=== PATIENT | male | born 1970 | race Caucasian/White ===

== ENCOUNTER 2021-01-26 11:20 | Emergency (ER) | payer OTHER, SELFPAY ==
[2021-01-26 11:32] VITALS: BP 145/85; PULSE 98; RESP 18; TEMP 36.4; O2SAT 100; BMI 32.5
--- NOTE | 2021-01-26 11:40 | XR_ITS ---
PROCEDURE: XR FOOT LT MIN 3V CLINICAL INDICATION: pain COMPARISON: No exams were available for comparison FINDINGS: No acute fractures or dislocations. Bone density is normal. The tarsals, metatarsals and phalanges are unremarkable. No significant soft tissue abnormality. IMPRESSION: No acute findings. Dictated by: Rosalee Briceno 01/26/2021 12:09 Rosalee Briceno in [place] 01/26/2021 12:09
--- NOTE | 2021-01-26 12:06 | HMH.EDUTC ---
[facility] Disposition Clinical Impression: Left foot pain Disposition: Home, Self-Care Condition on Discharge: Good Instructions: DI for Gout, DI for Foot Pain Additional Instructions: Rest the extremity, Elevate the extremity as tolerated while you are resting. Take the medications as directed. Follow up with Dr. Ugalde (podiatry). I put in a referral but you need to call her office and schedule an appointment. Follow up with your regular doctor. GO TO THE ER FOR ANY WORSENING SYMPTOMS Prescriptions: methylPREDNISolone [Medrol] 4 mg PO DIRECTED 6 Days #21 [email or web address] Transmission Status: Received by [id number] Referrals: Provider,Vasiliy, [Primary Care Provider] - Patricia Ugalde DPM [Staff Physician] - Forms: Work/School Release Time of Disposition: 12:17 Medical Decision Making - Medical Records Medical records reviewed: No: I reviewed the patient's medical records. - Bandar Inquiry Pt receiving controlled substance: No Vital Signs: 01/26/21 11:32 01/26/21 12:55 Temperature 97.6 F 98.4 F Temperature Source Oral Pulse Rate 78 Pulse Rate [Left] 98 H Respiratory Rate 18 16 Blood Pressure 123/79 Blood Pressure [Right Arm] 145/85 H Blood Pressure Mean [Right Arm] 105 02 Sat by Pulse Oximetry 100 Oxygen Delivery Method Room Air Orders (Tests/Meds): ED MEDICATIONS Discontinued Medications Generic Name Dose Route Start Last Admin Trade Name Freq PRN Reason Stop Dose Admin Ketorolac Tromethamine 30 mg 01/26/21 12:11 01/26/21 12:41 Ketorolac 60mg/2ml Vial IM 01/26/21 12:12 30 mg ONCE ONE Administration Methylprednisolone Sodium Succinate 125 mg 01/26/21 12:11 01/26/21 12:41 Methylprednisolone Sod Succ 125mg Vial IM 01/26/21 12:12 125 mg ONCE ONE Administration - Radiology Data #1 Image(s): Foot/Toes Image Reviewed: Yes I reviewed the patient's radiology image, Yes I have reviewed radiologist's interpretation Preliminary Findings: Normal/NAD, No Fracture Seen PROCEDURE: XR FOOT LT MIN 3V CLINICAL INDICATION: pain COMPARISON: No exams were available for comparison FINDINGS: No acute fractures or dislocations. Bone density is normal. The tarsals, metatarsals and phalanges are unremarkable. No significant soft tissue abnormality. IMPRESSION: No acute findings. Dictated by: Rosalee Briceno 01/26/2021 12:09 in [facility] HPI - General Stated complaint: pain/swelling lt foot Time Seen by Provider: 01/26/21 12:06 Mode of Arrival: Ambulatory Source of Information: Patient Limitations: No Limitations Description of Symptoms (Recalled from Triage Doc. by RN): L foot pain and swelling. pt is unsure of injury. this has been ongoing since sat. HEENT Symptoms (Recalled from RN notes): No Resp Symptoms (Recalled from RN notes): No Skin Symptoms (Recalled from RN notes): No MS Symptoms (Recalled from RN notes): Yes (L foot pain/swelling) Functional Status (Recalled from RN notes): na - History of Present Illness Provider Complaint: He states that he has had left foot pain for the past 3 days. He denies any injury. He denies any history of gout, but he has had episodes similar issues as he is having now. - Related Data Previous Rx's Medication Instructions Recorded methylPREDNISolone [Medrol] 4 mg PO DIRECTED 6 Days #21 01/26/21 tab.[email or web address] Allergies Allergy/AdvReac Type Severity Reaction Status Date / Time No Known Allergies Allergy Verified 07/14/20 11:26 - Worker's Comp Is this a Worker's Comp case?: No [facility] History - Hepatitis A Screen Drug use history?: No High risk sexual behaviors?: No History of sexually transmitted infection?: No Currently employed?: No Childcare worker?: No Do you have indoor plumbing?: Yes Do you have electricity?: Yes Attestation statement:: This patient has been screened for Hepatitis A risk factors. I have reviewed the patient's past med
[2021-01-26 12:55] VITALS: BP 123/79; PULSE 78; RESP 16; TEMP 36.9
== END 2021-01-26 12:54 | disposition home or self-care (01) ==
PROVIDERS: Emergency Provider Nurse Practitioner Family
DX: M79.672 Pain in left foot (principal)
CPT/HCPCS: 73630; 96372; 99202; G0463

== ENCOUNTER 2022-02-23 13:30 | Emergency (ER) | payer OTHER, SELFPAY ==
[2022-02-23 13:31] VITALS: BP 118/67; PULSE 64; RESP 18; TEMP 36.5; O2SAT 94; BMI 30.5
--- NOTE | 2022-02-23 13:43 | CT_ITS ---
FINAL REPORT CLINICAL HISTORY: fall off ladder FINDINGS: Thin section axial CT images of the chest were obtained with contrast. 3D reformatted images were also obtained. This study was performed with techniques to keep radiation doses as low as reasonably achievable (ALARA). Individualized dose reduction techniques using automated exposure control or adjustment of mA and/or kV according to the patient's size were employed. There is no evidence of pulmonary embolism. There is no evidence of thoracic aortic aneurysm or dissection. There is no evidence of mediastinal or hilar mass or adenopathy. There is no evidence of pulmonary mass or nodule. No localized inflammatory process is seen within the lungs. There is a nondisplaced fracture of the left 8th anterior rib. There are possible nondisplaced fractures of the bilateral 7th anterior ribs. There is no pneumothorax. IMPRESSION: No evidence of pulmonary embolism. No thoracic aortic aneurysm or dissection. Nondisplaced left 8th anterior rib with possible nondisplaced bilateral anterior 7th ribs. No pneumothorax. Reviewed, Interpreted and Dictated by Alvin Ellis III, MD Transcribed by Guy John Authenticated and [facility]
--- NOTE | 2022-02-23 13:43 | CT_ITS ---
FINAL REPORT CLINICAL HISTORY: fall off ladder FINDINGS: Axial images of the head were obtained without contrast. Coronal reformatted images were also obtained.This study was performed with techniques to keep radiation doses as low as reasonably achievable (ALARA). Individualized dose reduction techniques using automated exposure control or adjustment of mA and/or kV according to the patient's size were employed. There is no evidence of intracranial hemorrhage or mass. The ventricular size is within normal limits. There is no evidence of shift of the midline structures. No abnormal extra axial fluid collection is identified. No skull abnormality is seen on the bone window images. There is total opacification of the right maxillary sinus. There is a retention cyst or polyp in the left maxillary sinus. IMPRESSION: No acute intracranial abnormality. Reviewed, Interpreted and Dictated by Alvin Ellis III, MD Transcribed by Guy John Authenticated and . [facility]
--- NOTE | 2022-02-23 13:43 | CT_ITS ---
FINAL REPORT CLINICAL HISTORY: fall off ladder FINDINGS: Post contrast axial imaging of the abdomen and pelvis was obtained and reviewed utilizing a CTA protocol. This study was performed with techniques to keep radiation doses as low as reasonably achievable (ALARA). Individualized dose reduction techniques using automated exposure control or adjustment of mA and/or kV according to the patient's size were employed. There is moderate vascular calcification. There is no evidence of aortic aneurysm or dissection. There is no evidence of aortic stenosis. The celiac axis, superior mesenteric artery and inferior mesenteric artery are patent without stenosis. There is mild stenosis at the origin of the right renal artery, less than 50%. There are accessory renal arteries bilaterally. The iliac arteries are unremarkable, without stenosis. The internal iliac arteries are patent. Review of the remaining abdomen and pelvis demonstrates mild stranding adjacent to the ascending colon of uncertain significance. Mild colitis cannot be excluded. There is no acute fracture. There are bilateral L5 pars defects. There are mildly enlarged bilateral inguinal lymph nodes that are nonspecific and may be reactive. There is no free air or free fluid. There are small umbilical hernias containing fat. IMPRESSION: No evidence of aortic dissection. Mild stranding adjacent to the ascending colon of uncertain significance. Mild colitis cannot be excluded. No acute fracture. No free air or free fluid. Reviewed, Interpreted and Dictated by Alvin Ellis III, MD Transcribed by Guy John Authenticated and . [facility]
--- NOTE | 2022-02-23 13:45 | HMH.EDGENADL ---
ED Disposition Clinical Impression: Fall, Rib fractures Disposition: Home, Self-Care Condition on Discharge: Good Additional Instructions: At this time it was felt you are safe to be discharged from the emergency department. If new or worsening symptoms please do not hesitate to return the emergency department. Please take your medication as prescribed. Prescriptions: methocarbamoL [Methocarbamol 500mg Tablet] 500 mg PO Q6H PRN #16 tab PRN Reason: Moderate Pain Transmission Status: Pending to [facility] Referrals: Provider,Referral, [Primary Care Provider] - - Critical Care Critical Care Time: No Attestation: On 02/23/22, the high probability of a clinically significant, sudden or life threatening deterioration of the following system(s) required my full and direct attention, intervention and personal management. The time I documented below is in addition to time spent performing reported procedures but includes the following listed in this critical care notation. Medical Decision Making - Bandar Inquiry Pt receiving controlled substance: No Vital Signs: 02/23/22 13:31 02/23/22 15:00 Temperature 97.7 F Temperature Source Oral Pulse Rate 69 Pulse Rate [Right Radial] 64 Respiratory Rate 18 16 Blood Pressure 133/78 Blood Pressure [Right Arm] 118/67 Blood Pressure Mean 97 Blood Pressure Mean [Right Arm] 84 Blood Pressure Source [Right Arm] Automatic Cuff Blood Pressure Position [Right Arm] Sitting 02 Sat by Pulse Oximetry 94 L 95 Oxygen Delivery Method Room Air - Lab Data Lab Results 02/23/22 14:04: WBC 14.5 H, RBC 3.47 L, Hgb 11.6 L, Hct 35.3 L, MCV 101.7 H, MCH 33.5 H, MCHC 32.9, RDW 15.0, Plt Count 273, MPV 10.2, Neut % (Auto) 82.4 H, Lymph % (Auto) 10.2, Stone % (Auto) 4.1, Eos % (Auto) 2.4, Baso % (Auto) 0.9, Neut # (Auto) 12.0 H, Lymph # (Auto) 1.5, Stone # (Auto) 0.6, Eos # (Auto) 0.3, Baso # (Auto) 0.1 02/23/22 14:04: Sodium 138, Potassium 4.4, Chloride 103, Carbon Dioxide 25, Anion Gap 14.4, BUN 16, Creatinine 1.10, Estimated Creat Clear 113, Estimated GFR 70, Est GFR ( Amer) 85, Glucose 110 H, Calcium 9.3, Total Bilirubin 0.8, AST 85 H, ALT 32, Alkaline Phosphatase 58, Troponin I < 0.01, Total Protein 8.4 H, Albumin 4.7, Globulin 3.7 H, Albumin/Globulin Ratio 1.3 Result diagrams: 02/23/22 14:04 02/23/22 14:04 Orders (Tests/Meds): ED MEDICATIONS Generic Name Dose Route Start Last Admin Trade Name Freq PRN Reason Stop Dose Admin Sodium Chloride 10 ml 02/23/22 14:08 Sodium Chloride 0.9% 10ml Flush Syringe IV 03/25/22 14:07 NEEDED PRN Maintain IV Site Discontinued Medications Generic Name Dose Route Start Last Admin Trade Name Freq PRN Reason Stop Dose Admin Acetaminophen 1,000 mg 02/23/22 13:44 02/23/22 13:56 Acetaminophen 500mg Tab PO 02/23/22 13:45 1,000 mg ONCE ONE Administration Iopamidol 94 ml 02/23/22 14:33 02/23/22 14:34 Iopamidol-370 (76%);100ml Bottle IV 02/23/22 14:34 94 ml ONCE ONE Administration Methocarbamol 500 mg 02/23/22 13:45 02/23/22 13:56 Methocarbamol 500mg Tablet PO 02/23/22 13:46 500 mg ONCE ONE Administration Sodium Chloride 50 ml 02/23/22 14:33 02/23/22 14:34 0.9 % Sodium Chloride 50 Ml Vial IV 02/23/22 14:34 50 ml ONCE ONE Administration Sodium Chloride 10 ml 02/23/22 14:33 02/23/22 14:34 Sodium Chloride 0.9% 10ml Syr (Rad Only) IV 02/23/22 14:34 10 ml ONCE ONE Administration Tetanus/Reduced Diphtheria/Acell Pertussis 0.5 ml 02/23/22 13:48 Tet/Diphth/Pert-Adult 0.5ml Syringe IM 02/23/22 13:49 .ONCE ONE ORDERS Category Date Time Status Troponin I Q3H Lab 02/23/22 17:00 Ordered Troponin I Q3H Lab 02/23/22 20:00 Ordered ECG Request by /Nse Stat Y 02/23/22 13:45 Ordered Medical Decision Narrative: In summary patient is a 52-year-old male with past medical history described below presents emergency department for e
--- NOTE | 2022-02-23 14:08 | ECG_ITS ---
APPROVED REPORT Exam: Resting ECG HR:62 bpm ECG Measurements Heart Rate 62 AXES [place] 198 P 42 QRSd 103 QRS -13 QT 423 T 121 QTc 428 Conclusion SINUS RHYTHM LOW QRS VOLTAGE IN PRECORDIAL LEADS [QRS DEFLECTION < 1.0 mV IN CHEST LEADS] POSSIBLE ANTERIOR MYOCARDIAL INFARCTION , PROBABLY OLD [30 ms Q WAVE IN V3/V4, OR R < 0.2 mV IN V4] BORDERLINE ECG UNCONFIRMED REPORT Electronically signed by : Josef Ross MD 02/23/2022 17:01:14
--- NOTE | 2022-02-23 14:12 | PC.NURSE ---
rad at BS to transport pt to CT
[2022-02-23 14:30] LABS: Alanine Aminotransferase 32 U/L (12-78); Albumin Level 4.7 g/dl (3.5-5.0); Albumin/Globulin Ratio 1.3 (1.1-1.8); Alkaline Phosphatase 58 U/L (38-126); Anion Gap 14.4 mEq/L (5-15); Aspartate Amino Transferase 85 U/L (17-59); Basophils # 0.1 K/mm3 (0-0.2); Basophils % 0.9 % (0.1-2.0); Bilirubin,Total 0.8 mg/dl (0.2-1.3); Blood Urea Nitrogen 16 mg/dl (9-20); Calcium 9.3 mg/dl (8.4-10.2); Carbon Dioxide 25 mmol/L (22.0-30.0); Chloride 103 mmol/L (98-107); Creatinine Clearance Estimated 113 mL/min (50-200); Eosinophils # 0.3 K/mm3 (0.0-0.4); Eosinophils % 2.4 % (0.1-12.0); Estimated Glomerular Filt Rate 70 ml/min (>60); GFR (African American) 85 ML/MIN (>60); Globulin 3.7 g/dL (1.3-3.2); Glucose 110 mg/dl (74-100); Hematocrit 35.3 % (42.0-52.0); Hemoglobin 11.6 g/dL (14.1-18.0); Lymphocytes # 1.5 K/mm3 (0.7-4.5); Lymphocytes % 10.2 % (10-50); Mean Corpuscular HGB Conc 32.9 g/dL (31.8-35.4); Mean Corpuscular Hemoglobin 33.5 pg (27.0-31.2); Mean Corpuscular Volume 101.7 fl (80-94); Mean Platelet Volume 10.2 fl (7.4-10.4); Monocytes # 0.6 K/mm3 (0.1-1.0); Monocytes % 4.1 % (1.7-9.3); Neutrophils % 82.4 % (37.0-80.0); Platelet Count 273 K/mm3 (142-424); Potassium 4.4 mmoL/L (3.5-5.1); Red Blood Count 3.47 M/mm3 (4.60-6.20); Sodium 138 mmol/L (136-145); Total Protein,Serum 8.4 g/dl (6.3-8.2); White Blood Count 14.5 K/mm3 (4.8-10.8)
[2022-02-23 14:52] LABS: Troponin I < 0.01 ng/ml (0.00-0.034)
[2022-02-23 15:00] VITALS: BP 133/78; PULSE 69; RESP 16; O2SAT 95
--- NOTE | 2022-02-23 15:48 | PC.NURSE ---
ER at discussing test results with pt pt also getting incentive spirometer teaching
[2022-02-23 16:23] VITALS: BP 112/74; PULSE 74; RESP 16; TEMP 36.6; O2SAT 98
== END 2022-02-23 16:24 | disposition home or self-care (01) ==
PROVIDERS: Emergency Provider Emergency Medicine
DX: S22.42XA Multiple fractures of ribs, left side, initial encounter for closed fracture (principal); W19.XXXA Unspecified fall, initial encounter; Z23 Encounter for immunization; Z79.899 Other long term (current) drug therapy; Z72.0 Tobacco use
CPT/HCPCS: 70450; 71275; 74174; 80053; 84484; 85025; 90471; 90715; 93005; 99285; Q9967

== ENCOUNTER 2024-11-15 14:44 | Emergency (ER) | payer OTHER, SELFPAY ==
[2024-11-15] VITALS (7 sets, daily range): BP systolic 131–166; BP diastolic 83–99; PULSE 64–87; RESP 16–19; TEMP 36.7–36.8; O2SAT 93–96; BMI 32.5
--- NOTE | 2024-11-15 14:45 | HMH.EDGENADL ---
Discharge Plan Disposition Patient Disposition: Home, Self-Care Condition: Good Prescriptions Prescriptions: New prednisone 50 mg tablet 50 mg PO DAILY 5 Days Qty: 5 0RF amoxicillin-pot clavulanate 875-125 mg tablet 1 tab PO BID Qty: 10 0RF No Action methylprednisolone 4 MG tablets,dose pack 4 mg PO DIRECTED 6 Days Qty: 21 0RF methocarbamol 500 MG tablet 500 mg PO Q6H PRN (Reason: Moderate Pain) Qty: 16 0RF Referrals Follow up/Referrals: Kory Ponce DO [Staff Physician] - See instructions (Left hand atraumatic swelling) Provider,Referral, [Primary Care Provider] - See instructions Activity Restrictions/Add. Instructions Additional Instructions/Restrictions: I have sent you in a steroid to help reduce the swelling. Recommend rest ice compression elevation. I have also referred you to an orthopedic surgeon for further evaluation. If you have any continued new or worsening signs or symptoms follow-up with your PCP or return to the ER as needed. Clinical Impressions Clinical Impression: Swelling of left hand Print Language Print Language: Chilean Discharge ED Provider: Jean Mercer General Adult HPI <KATERIN Chou - Last Filed: 11/15/24 19:55> General Chief complaint: Extremity Problem,Nontraumatic Stated complaint: left hand swollen, painful Time Seen by Provider: 11/15/24 14:45 History of Present Illness HPI narrative: Patient presents for evaluation of left hand swelling. Patient states that his left hand has been swelling since . He denies any trauma. He does drive a forklift all day. He reports difficulty with making a fist but has otherwise no limitations of range of motion. He has had no fever chills nausea vomiting numbness tingling loss of motor or sensory. He has essentially no pain. He is right-hand dominant. Please note that above description of symptoms, in this electronic medical record under categorization of recalled from ER triage doctor by RN are reflective of an initial nursing assessment, however, is not reflective of my full history and physical exam that was personally taken and clarified. Consequentially, this preceding description of symptoms, which may include the patient's categorized chief complaint in the EMR, do not reflect my personal clinical impression, and the ultimate description of history of present illness and patient stated complaints should be deferred to this section of the note. Unless stated otherwise or congruent with this section of the note, additional signs, symptoms, or incongruence should be interpreted as inaccurate with my clinical impression. Related Data Previous Rx's ?Medication ?Instructions ?Recorded methylprednisolone 4 mg tablets in 4 mg PO DIRECTED 6 days ##21 01/26/21 a dose pack methocarbamol 500 mg tablet 500 mg PO Q6H PRN Moderate Pain 02/23/22 #16 tabs amoxicillin 875 mg-potassium 1 tab PO BID #10 tabs 11/15/24 clavulanate 125 mg tablet prednisone 50 mg tablet 50 mg PO DAILY 5 days #5 tabs 11/15/24 Allergies Allergy/AdvReac Type Severity Reaction Status Date / Time No Known Allergies Allergy Verified 07/14/20 11:26 <Jean Mercer MD - Last Filed: 11/15/24 20:12> History of Present Illness HPI narrative: Please note that above description of symptoms, in this electronic medical record under categorization of recalled from ER triage doctor by RN are reflective of an initial nursing assessment, however, is not reflective of my full history and physical exam that was personally taken and clarified. Consequentially, this preceding description of symptoms, which may include the patient's categorized chief complaint in the EMR, do not reflect my personal clinical impression, and the ultimate description of history of present illness and patient stated complaints should be deferred to this section of the note. Unless stated otherwise or congruent with this section of the note, additional signs, symptoms, or incongruence should be interpreted as inaccurate with my clinical impression. [facility] <KATERIN Chou - Last Filed: 11/15/24 19:55> [facility] Disclaimer: The information contained in this section may have been updated after the patient was seen, as this information can be updated by other users. Social History Smoking Status: Current every day smoker tobacco type: cigarettes (1 ppd) alcohol intake: current alcohol intake frequency: holidays/special occasions only current occupational status: employed Travel in the last 8 weeks?: None Have you lived/traveled outside [place] in past 30 days?: No Contact w/someone who lives/traveled outside US past 30 days?: No Exposure to someone with infectious disease in past 14 days?: No Do you have a fever (greater than 100.4 F or 38 C)?: No Have you tested positive for COVID-19?: No Exposed to someone with COVID-19 in past 14 days?: No Do you have a sore throat?: No Do you have a cough?: No Do you have any weakness?: No Do you have any diarrhea?: No Are you experiencing any unusual bleeding?: No Do you have any muscle aches/pain?: Yes Do you have any abdominal pain?: No Are you experiencing loss of taste or smell?: No Other Medical History Have you received the Flu Vaccine for this season: Yes Have you received the Pneumonia Vaccine: No <KATERIN Chou - Last Filed: 11/15/24 19:55> ROS Obtained: Yes Systems reviewed as appropriate & no additional complaints except as documented Physical Exam <KATERIN Chou - Last Filed: 11/15/24 19:55> General General appearance: alert and in no apparent distress Respiratory Respiratory exam: Present normal lung sounds bilaterally Cardiovascular Cardiovascular exam: Present regular rate Abdominal Exam Abdominal exam: Absent soft Neurological Exam Neurological exam: Present alert and oriented X3 Medical Decision Making <KATERIN Chou - Last Filed: 11/15/24 19:55> Medical Records Screening: Per USPSTF and CDC recommendations, given the prevalence of disease in our region, it is our hospital?s policy to screen for HIV and viral Hepatitis for all patients aged 18 and over and those with ongoing risk factors. Vital Signs: 11/15/24 14:52 11/15/24 14:58 11/15/24 15:30 Temperature 98.2 F Temperature Source Oral Pulse Rate 87 68 Pulse Rate [Left Radial] 82 Respiratory Rate 19 Blood Pressure 144/98 H 162/83 H Blood Pressure [Right Arm] 144/98 H Blood Pressure Mean [Right Arm] 113 Blood Pressure Source [Right Arm] Automatic Cuff Blood Pressure Position [Right Arm] Supine 02 Sat by Pulse Oximetry 95 96 94 L Oxygen Delivery Method Room Air 11/15/24 16:01 11/15/24 16:30 11/15/24 17:00 Temperature Temperature Source Pulse Rate 69 64 69 Pulse Rate [Left Radial] Respiratory Rate Blood Pressure 166/99 H 142/85 H 131/83 Blood Pressure [Right Arm] Blood Pressure Mean [Right Arm] Blood Pressure Source [Right Arm] Blood Pressure Position [Right Arm] 02 Sat by Pulse Oximetry 93 L 94 L 94 L Oxygen Delivery Method Room Air 11/15/24 17:37 Temperature 98.0 F Temperature Source Pulse Rate 71 Pulse Rate [Left Radial] Respiratory Rate 16 Blood Pressure 134/90 Blood Pressure [Right Arm] Blood Pressure Mean [Right Arm] Blood Pressure Source [Right Arm] Blood Pressure Position [Right Arm] 02 Sat by Pulse Oximetry Oxygen Delivery Method Lab Data Lab results reviewed: Yes I reviewed the patient's lab results. Lab Results 11/15/24 15:03: WBC 8.7, RBC 3.47 L, Hgb 11.3 L, Hct 33.8 L, MCV 97.4 H, MCH 32.6 H, MCHC 33.4, RDW 14.4, Plt Count 238, MPV 11.1 H, Neut % (Auto) 61.8, Lymph % (Auto) 23.6, [place] % (Auto) 6.4, Eos % (Auto) 7.0, Baso % (Auto) 1.1, Neut # (Auto) 5.4, Lymph # (Auto) 2.1, [place] # (Auto) 0.6, Eos # (Auto) 0.6 H, Baso # (Auto) 0.1, ESR 122 H, PT 11.2, INR 1.00, D-Dimer 0.50, Sodium 136, Potassium 4.0, Chloride 101, Carbon Dioxide 30, Anion Gap 9.0, BUN 13, Creatinine 1.40 H, Estimated Creat Clear 93, Estimated GFR 53 L, Est GFR ( Amer) 64, Glucose 107 H, Uric Acid 6.1, Calcium 9.4, Total Bilirubin 1.1, AST 40, ALT 15, Alkaline Phosphatase 49, C-Reactive Protein 12.4 H, Total Protein 7.8, Albumin 4.7, Globulin 3.1, Albumin/Globulin Ratio 1.5, HCV Ab RACHEL w/Rflx PCR Qn Negative, HIV Ag/Ab Combo Qual Negative 11/15/24 15:03 11/15/24 15:03 Orders (Tests/Meds): ED MEDICATIONS Discontinued Medications Generic Name Dose Route Start Last Admin Trade Name Freq PRN Reason Stop Dose Admin Prednisone 40 mg 11/15/24 17:39 11/15/24 17:41 Prednisone 20mg Tab PO 11/15/24 17:40 40 mg ONCE ONE Administration ORDERS Category Date Time Status Forearm XR left 2 views [XR forearm LT 2V] Stat Exams 11/15/24 15:04 Completed Hand XR left minimum 3 views [XR hand LT min 3V] Stat Exams 11/15/24 15:04 Completed POCUS Point of Care (ER Only) Stat Exams 11/15/24 17:14 Taken CBC w/Auto Diff [Complete Blood Count Auto Diff] Stat Lab 11/15/24 15:03 Completed CMP [Comprehensive Metabolic Panel] Stat Lab 11/15/24 15:03 Completed CRP [C-Reactive Protein] Stat Lab 11/15/24 15:03 Completed D-Dimer Stat Lab 11/15/24 15:03 Completed ESR [Erythrocyte Sedimentation Rate] Stat Lab 11/15/24 15:03 Completed HIV Combo Stat Lab 11/15/24 15:03 Completed Hepatitis C Ab Qual. W/ RFX Stat Lab 11/15/24 15:03 Completed INR [Prothrombin Time INR] Stat Lab 11/15/24 15:03 Completed Uric Acid Stat Lab 11/15/24 15:03 Completed Medical Decision Narrative: In summary patient is a 54-year-old male who presents to the emergency department for evaluation of painless atraumatic swelling of his left hand. Patient is hemodynamically stable upon arrival, afebrile. Physical exam is remarkable for 2+ to 3+ slightly pitting edema of the left hand. There is no erythema there is no induration there is no fluctuance. Patient is neurovascularly intact distally. He has reduced range of motion due to the swelling but is nontender to palpation. He has good peripheral pulses and cap refill. There is palpable ulnar and radial pulses. Edema extends up to approximately mid forearm.. Differential diagnosis includes cellulitis versus DVT versus overuse syndrome versus arthritis etc. Initial workup will be conducted with hematologic labs plain film x-ray POCUS. Initial interventions Tylenol and ibuprofen for now. Initial workup reviewed by me shows that he has a white count of 8.7 hemoglobin hematocrit 11.3 and 33.8 respectively with an absolute neutrophil count of 5.4, INR of 1 D-dimers 0.5 creatinine is 1.4 GFR is 53 CRP is 12.4 sed rate is 122. My informed interpretation of his imaging shows soft tissue swelling without any bony abnormality and POCUS did not reveal any DVT or signs of subcutaneous cellulitis or abscess. Given this we have essentially ruled out any serious or life-threatening condition and while there remains diagnostic uncertainty patient is appropriate for discharge with instruction to continue Tylenol alternating with Motrin, he was given a prescription for short course of steroids, and I have referred him to orthopedics for further evaluation and care. Patient given strict return precautions. Patient verbalized understanding and agreement. <Jean Mercer MD - Last Filed: 11/15/24 20:12> Medical Records Medical records reviewed: Yes I reviewed the patient's medical records. Bandar Inquiry Pt receiving controlled substance: No Bandar was queried for this patient: No Vital Signs: 11/15/24 14:52 11/15/24 14:58 11/15/24 15:30 Temperature 98.2 F Temperature Source Oral Pulse Rate 87 68 Pulse Rate [Left Radial] 82 Respiratory Rate 19 Blood Pressure 144/98 H 162/83 H Blood Pressure [Right Arm] 144/98 H Blood Pressure Mean [Right Arm] 113 Blood Pressure Source [Right Arm] Automatic Cuff Blood Pressure Position [Right Arm] Supine 02 Sat by Pulse Oximetry 95 96 94 L Oxygen Delivery Method Room Air 11/15/24 16:01 11/15/24 16:30 11/15/24 17:00 Temperature Temperature Source Pulse Rate 69 64 69 Pulse Rate [Left Radial] Respiratory Rate Blood Pressure 166/99 H 142/85 H 131/83 Blood Pressure [Right Arm] Blood Pressure Mean [Right Arm] Blood Pressure Source [Right Arm] Blood Pressure Position [Right Arm] 02 Sat by Pulse Oximetry 93 L 94 L 94 L Oxygen Delivery Method Room Air 11/15/24 17:37 Temperature 98.0 F Temperature Source Pulse Rate 71 Pulse Rate [Left Radial] Respiratory Rate 16 Blood Pressure 134/90 Blood Pressure [Right Arm] Blood Pressure Mean [Right Arm] Blood Pressure Source [Right Arm] Blood Pressure Position [Right Arm] 02 Sat by Pulse Oximetry Oxygen Delivery Method Lab Data Lab Results 11/15/24 15:03: WBC 8.7, RBC 3.47 L, Hgb 11.3 L, Hct 33.8 L, MCV 97.4 H, MCH 32.6 H, MCHC 33.4, RDW 14.4, Plt Count 238, MPV 11.1 H, Neut % (Auto) 61.8, Lymph % (Auto) 23.6, [place] % (Auto) 6.4, Eos % (Auto) 7.0, Baso % (Auto) 1.1, Neut # (Auto) 5.4, Lymph # (Auto) 2.1, [place] # (Auto) 0.6, Eos # (Auto) 0.6 H, Baso # (Auto) 0.1, ESR 122 H, PT 11.2, INR 1.00, D-Dimer 0.50, Sodium 136, Potassium 4.0, Chloride 101, Carbon Dioxide 30, Anion Gap 9.0, BUN 13, Creatinine 1.40 H, Estimated Creat Clear 93, Estimated GFR 53 L, Est GFR ( Amer) 64, Glucose 107 H, Uric Acid 6.1, Calcium 9.4, Total Bilirubin 1.1, AST 40, ALT 15, Alkaline Phosphatase 49, C-Reactive Protein 12.4 H, Total Protein 7.8, Albumin 4.7, Globulin 3.1, Albumin/Globulin Ratio 1.5, HCV Ab RACHEL w/Rflx PCR Qn Negative, HIV Ag/Ab Combo Qual Negative Orders (Tests/Meds): ED MEDICATIONS Discontinued Medications Generic Name Dose Route Start Last Admin Trade Name Freq PRN Reason Stop Dose Admin Prednisone 40 mg 11/15/24 17:39 11/15/24 17:41 Prednisone 20mg Tab PO 11/15/24 17:40 40 mg ONCE ONE Administration ORDERS Category Date Time Status Forearm XR left 2 views [XR forearm LT 2V] Stat Exams 11/15/24 15:04 Completed Hand XR left minimum 3 views [XR hand LT min 3V] Stat Exams 11/15/24 15:04 Completed POCUS Point of Care (ER Only) Stat Exams 11/15/24 17:14 Taken CBC w/Auto Diff [Complete Blood Count Auto Diff] Stat Lab 11/15/24 15:03 Completed CMP [Comprehensive Metabolic Panel] Stat Lab 11/15/24 15:03 Completed CRP [C-Reactive Protein] Stat Lab 11/15/24 15:03 Completed D-Dimer Stat Lab 11/15/24 15:03 Completed ESR [Erythrocyte Sedimentation Rate] Stat Lab 11/15/24 15:03 Completed HIV Combo Stat Lab 11/15/24 15:03 Completed Hepatitis C Ab Qual. W/ RFX Stat Lab 11/15/24 15:03 Completed INR [Prothrombin Time INR] Stat Lab 11/15/24 15:03 Completed Uric Acid Stat Lab 11/15/24 15:03 Completed Medical Decision Narrative: In summary patient is a 54-year-old male who presents to the emergency department for evaluation of painless atraumatic swelling of his left hand. Patient is hemodynamically stable upon arrival, afebrile. Physical exam is remarkable for 2+ to 3+ slightly pitting edema of the left hand. There is no erythema there is no induration there is no fluctuance. Patient is neurovascularly intact distally. He has reduced range of motion due to the swelling but is nontender to palpation. He has good peripheral pulses and cap refill. There is palpable ulnar and radial pulses. Edema extends up to approximately mid forearm.. Differential diagnosis includes cellulitis versus DVT versus overuse syndrome versus arthritis etc. Initial workup will be conducted with hematologic labs plain film x-ray POCUS. Initial interventions Tylenol and ibuprofen for now. Initial workup reviewed by me shows that he has a white count of 8.7 hemoglobin hematocrit 11.3 and 33.8 respectively with an absolute neutrophil count of 5.4, INR of 1 D-dimers 0.5 creatinine is 1.4 GFR is 53 CRP is 12.4 sed rate is 122. My informed interpretation of his imaging shows soft tissue swelling without any bony abnormality and POCUS did not reveal any DVT or signs of subcutaneous cellulitis or abscess. Given this we have essentially ruled out any serious or life-threatening condition and while there remains diagnostic uncertainty patient is appropriate for discharge with instruction to continue Tylenol alternating with Motrin, he was given a prescription for short course of steroids, and I have referred him to orthopedics for further evaluation and care. Patient given strict return precautions. Patient verbalized understanding and agreement. I was consulted by the DEJAN, and we discussed the complexity of the problems being addressed. I approved the treatment and management plan for this patient's care in the Emergency Department, thus performing a substantive portion of the medical decision making. Jean Mercer MD Procedures <Jean Mercer MD - Last Filed: 11/15/24 20:12> Limited Ultrasound Indication:: Limited DVT ultrasound Indication: Limited compression ultrasonography of the left upper extremity was performed to evaluate for non-compressibility of the deep veins in the patient. The ultrasound was performed with the following indications, as noted in the H&P: Left upper extremity swelling and discomfort Identified structures: Left ulnar vein, radial vein, cephalic vein, basilic vein, axillary vein. Findings: Upper extremity: Left UV good compressibility Left RV: Good compressibility Left Cephalic vein: Good compressibility Left Basilic vein: Good compressibility Left Axillary vein: Good compressibility Impression: Normal DVT ultrasound without evidence of DVT. Patient does have significant subcutaneous edema without gas consistent with inflammatory edema versus cellulitis. Images were saved to permanent archive The study was technically adequate CPT: 06733-87-AG [id number] 32043-67 (complete bilateral study) This study was performed by me, and I personally interpreted all images/videos. Based on my clinical judgement, these images were adequate and did not necessitate further imaging Critical Care <Jean Mercer MD - Last Filed: 11/15/24 20:12> Critical Care Time Critical Care Time: No
--- NOTE | 2024-11-15 15:04 | XR_ITS ---
PROCEDURE INFORMATION: Exam: XR Left Hand Exam date and time: 11/15/2024 3:10 PM Age: 54 years old Clinical indication: Pain; Hand; Left; Additional info: Left hand pain and swelling TECHNIQUE: Imaging protocol: Radiologic exam of the left hand. Views: 3 or more views. Total images: 3 COMPARISON: CR XR FOREARM LT 2V 11/15/2024 3:10 PM FINDINGS: Bones/joints: No evidence of acute fracture or dislocation. Soft tissues: Mild soft tissue swelling. IMPRESSION: 1. No evidence of acute fracture or dislocation. 2. Mild soft tissue swelling.
--- NOTE | 2024-11-15 15:04 | XR_ITS ---
PROCEDURE INFORMATION: Exam: XR Left Forearm Exam date and time: 11/15/2024 3:10 PM Age: 54 years old Clinical indication: Pain; Hand; Left; Additional info: Left hand pain and swelling TECHNIQUE: Imaging protocol: Radiologic exam of the left forearm. Views: 2 views. Total images: 2 COMPARISON: CR XR HAND LT MIN 3V 11/15/2024 3:10 PM FINDINGS: Bones/joints: No evidence of acute fracture or dislocation. Soft tissues: Soft tissues are within normal limits. IMPRESSION: No evidence of acute fracture or dislocation.
[2024-11-15 15:21] LABS: Basophils # 0.1 K/mm3 (0-0.2); Basophils % 1.1 % (0.1-2.0); Eosinophils # 0.6 Kmm3 (0.0-0.4); Hematocrit 33.8 % (42.0-52.0); Hemoglobin 11.3 g/dL (14.1-18.0); Immature Granulocytes # 0.01 10^3uL; Immature Granulocytes % 0.1 %; Lymphocytes # 2.1 K/mm3 (0.7-4.5); Lymphocytes % 23.6 % (10-50); Mean Corpuscular HGB Conc 33.4 g/dL (31.8-35.4); Mean Corpuscular Hemoglobin 32.6 pg (27.0-31.2); Mean Corpuscular Volume 97.4 fl (80-94); Mean Platelet Volume 11.1 fl (7.4-10.4); Monocytes # 0.6 K/mm3 (0.1-1.0); Monocytes % 6.4 % (1.7-9.3); Neutrophils # 5.4 K/mm3 (1.8-7.8); Neutrophils % 61.8 % (37.0-80.0); Nucleated Red Blood Cells # 0 10^3/uL; Nucleated Red Blood Cells % 0 %; Platelet Count 238 K/mm3 (142-424); Red Blood Count 3.47 M/mm3 (4.60-6.20); Red Cell Distribution Width 14.4 % (11.5-17.5); Red Cell Distribution Width-SD 51.2 fL; White Blood Count 8.7 K/mm3 (4.8-10.8)
[2024-11-15 15:26] LABS: Albumin Level 4.7 g/dl (3.5-5.0); Chloride 101 mmol/L (98-107); Sodium 136 mmol/L (136-145)
[2024-11-15 15:29] LABS: Alanine Aminotransferase 15 U/L (12-78); Albumin/Globulin Ratio 1.5 (1.1-1.8); Alkaline Phosphatase 49 U/L (38-126); Aspartate Amino Transferase 40 U/L (17-59); Bilirubin,Total 1.1 mg/dl (0.2-1.3); Blood Urea Nitrogen 13 mg/dl (9-20); Calcium 9.4 mg/dl (8.4-10.2); Carbon Dioxide 30 mmol/L (22.0-30.0); Creatinine Clearance Estimated 93 mL/min (50-200); Estimated Glomerular Filt Rate 53 ml/min (>60); GFR (African American) 64 ML/MIN (>60); Globulin 3.1 g/dL (1.3-3.2); Glucose 107 mg/dl (74-100); Total Protein,Serum 7.8 g/dl (6.3-8.2)
[2024-11-15 15:31] LABS: Prothrombin Time 11.2 seconds (10.1-12.5)
[2024-11-15 15:35] LABS: C-Reactive Protein 12.4 mg/L (0-4)
[2024-11-15 15:49] LABS: Uric Acid 6.1 mg/dl (3.5-8.5)
[2024-11-15 16:29] LABS: Erythrocyte Sedimentation Rate 122 mm/hr (0-20); HIV Combo NEGATIVE (Negative)
[2024-11-15 16:37] LABS: Hepatitis C Ab Qual. W/ RFX NEGATIVE (Negative)
[2024-11-15] MEDS: predniSONE 20MG TAB 40 MG PO (17:41)
== END 2024-11-15 17:38 | disposition home or self-care (01) ==
PROVIDERS: Physician Assistant; Emergency Provider Emergency Medicine
DX: R22.32 Localized swelling, mass and lump, left upper limb (principal); R70.0 Elevated erythrocyte sedimentation rate; Z11.59 Encounter for screening for other viral diseases; Z11.4 Encounter for screening for human immunodeficiency virus [HIV]
CPT/HCPCS: 73090; 73130; 80053; 84550; 85025; 85378; 85610; 85651; 86140; 86803; 87389; 99284